=== PATIENT | female | born 1995 | race Caucasian/White ===

== ENCOUNTER 2016-09-29 03:06 | Observation (INO) | payer SELFPAY ==
[~2016-09-29] VITALS: Ht 149.9 cm; Wt 94.4 kg
--- NOTE | ~2016-09-29 | HP ---
PATIENT'S NAME: TATY BROCK [facility] AGE: 21 Y [address] ROOM: [id number] [place] [address] LOCATION: [facility] ADMIT DATE: 09/29/2016 History & Physical DISCHARGE DATE: FAMILY PHYSICIAN: PHYSICIAN, LEROY ATTENDING PHYSICIAN: CHERYL BUCHANAN DATE OF SERVICE: HISTORY OF PRESENT ILLNESS: The patient is a 21-year-old female, -1-1-1, at 28 weeks and 5 days, who presented to Labor and Delivery this morning with complaints of pelvic pressure and abdominal pain. Her has been complicated by history of late presentation to care at approximately 19 to 20 weeks and was diagnosed with dichorionic diamniotic twin while hospitalized. She also has a history of methamphetamine use and a history of a possible 28 week demise due to a fall and suspected abruption. The patient has been followed throughout this , since it has been documented by our office as well as [facility]. Also of significant note is that she had an ultrasound done on September [address] Skelton with [facility] that showed demise of twin A. At that time, the fetus was measuring approximately 22 weeks. This was twin A, which was a female. Twin B was viable and had normal growth at the 44th percentile. The patient was counseled that she was at increased risk for delivery and a PPROM due to her complications. When the patient arrived here, she was checked by nursing staff and was found to be internally approximately a cm dilated with multiparous cervix. She had noted irritability on the monitor and was just complaining of generalized abdominal pain. IV fluids were started. Labs were obtained. The patient improved rapidly after initiation of IV fluids. Due to concern for her risk of possible labor, she was ordered to receive Celestone, so she has received one dose of that thus far. Currently, she states that she is doing well. Denies any abdominal pain and denies any further pelvic pressure or vaginal bleeding. She has noted positive movements. PAST MEDICAL HISTORY: Significant for as stated above methamphetamine abuse. PAST SURGICAL HISTORY: Noncontributory. OBSTETRICAL HISTORY: As stated above. The patient has a history of a previous delivery in a previous demise at 28 weeks due to her reported fall. She has also been anemic during this and has been taking iron supplementation. Her labs are not currently in front of me for review. PATIENT'S NAME: TATY BROCK [facility] AGE: 21 Y [address] ROOM: [address] [address] LOCATION: [facility] ADMIT DATE: 09/29/2016 History & Physical DISCHARGE DATE: FAMILY PHYSICIAN: PHYSICIAN, NO ATTENDING PHYSICIAN: CHERYL BUCHANAN ALLERGIES: SHE DOES NOT HAVE ANY KNOWN ALLERGIES TO MEDICATIONS. MEDICATIONS: She is taking a vitamin and ferrous sulfate. REVIEW OF SYSTEMS: Negative except as noted above. SOCIAL HISTORY: The patient denies any tobacco, alcohol, or drug use at this time. She is accompanied by her significant other. PHYSICAL EXAMINATION: VITAL SIGNS: Reviewed and are stable. heart tones have a baseline of 135 with moderate variability, positive accels, occasional variable D cell with spontaneous resolution and toco shows some mild irritability. GENERAL: She is awake, alert, and oriented, does not appear to be any acute distress. HEART: Regular rate and rhythm. LUNGS: Clear to auscultation bilaterally. ABDOMEN: Gravid. EXTREMITIES: Show no cyanosis or edema. NEUROLOGIC: On cervical exam, anesthesia is probably fingertip thick and high. LABORATORY DATA: Bedside ultrasound was performed for presentation only as she had had a recent growth scan and appears the Twin A on her left, still is in cephalic presentation with twin B in transverse lie with head in the patient's left upper quadrant. ASSESSMENT AND PLAN: This is a 21-year-old female at 28 weeks and 5 days with a dichorionic diamniotic twin with demise of twin A and complaints of pelvic pressure and abdominal pain. 1. Intrauterine . status of twin B remains reassuring with normal heart tones. 2. . Concern for labor. Discussed with the patient and her significant other that I do recommend that she receive Celestone today and another repeat dose tomorrow just as she is a high-risk patient and with her concerning symptoms in previous poor care. She was in agreement with this plan. She is allowed to have a general diet and tend to have external monitoring every 12 hours. She was instructed to notify the nurses, should she start having feelings of contractions, decreased PATIENT'S NAME: TATY BROCK [facility] AGE: 21 Y [address] ROOM: [address] [address] LOCATION: [facility] ADMIT DATE: 09/29/2016 History & Physical DISCHARGE DATE: FAMILY PHYSICIAN: PHYSICIAN, NO ATTENDING PHYSICIAN: CHERYL BUCHANAN movement, or any other concerns that she could be placed back on the monitor. She was agreeable to this plan. MD VEE TURK/aris /[id number] D: [id number] T: [id number] HISTORY & PHYSICAL
[2016-09-29 04:24] LABS: BASOPHIL % 0.3 %; EOSINOPHIL # 0.1 K/uL (0.0-0.5); EOSINOPHIL % 0.9 %; HEMATOCRIT 31.1 % (33.0-46.0); HEMOGLOBIN 10.4 g/dL (11.0-15.0); IMMATURE GRANULOCYTE # 0.1 K/uL (0.0-0.3); IMMATURE GRANULOCYTE % 0.6 %; LYMPHOCYTE # 2.4 K/uL (0.8-4.0); LYMPHOCYTE % 24.1 %; MCH 30.7 pg (27.0-34.0); MCHC 33.4 gm/dL (32.0-36.5); MCV 91.7 fl (83.0-98.0); MONOCYTE # 0.6 K/uL (0.0-1.0); MONOCYTE % 5.6 %; MPV 10.7 fl (9.4-12.4); NEUTROPHIL # (ANC) 6.8 K/uL (1.8-7.8); NEUTROPHIL % 68.5 %; NRBC % 0 /100WBC (0-0.00); PLATELET COUNT 306 K/uL (150-450); RBC 3.39 M/uL (3.50-5.00); RDW-CV 13.2 % (11.9-14.6)
[2016-09-29 04:41] LABS: ALBUMIN 2.5 gm/dL (3.5-5.0); ALK PHOS 115 IU/L (33-138); ALT 45 IU/L (12-78); ANION GAP 13.4 (10.0-19.0); AST 22 IU/L (10-40); BLOOD UREA NITROGEN 9 mg/dL (6-24); CALCIUM 8.7 mg/dL (8.5-10.5); CHLORIDE 106 mMol/L (96-110); CO2 24 mMol/L (22-32); CREATININE 0.6 mg/dL (0.5-1.1); ESTIMATED GFR (MDRD EQUATION) > 60; POTASSIUM 3.4 mMol/L (3.7-5.1); SODIUM 140 mMol/L (135-145); TOTAL PROTEIN 6.6 g/dL (6.0-8.4)
[2016-09-29 04:42] LABS: TOTAL BILIRUBIN 0.3 mg/dL (0.0-1.5)
[2016-09-29] MEDS ORDERED: PRENATAL 1+1)(P1 TAB PO (05:51)
[2016-09-29 07:30] LABS: BARBITURATE NEGATIVE (NEGATIVE); COCAINE NEGATIVE (NEGATIVE); OPIATES NEGATIVE (NEGATIVE)
[2016-09-29 07:39] LABS: AMPHETAMINE NEGATIVE (NEGATIVE)
--- NOTE | 2016-09-29 14:37 | NUR ---
Met with patient at bedside today. Introduced myself and explained my role with the CM department. Patient is to [place]. he has a job, but they do not have insurance through his work. Anna is in the process of applying for Medicaid, but [facility] has asked for supporting documents and she is in the process of getting those together. She states they are currently living at [facility]. She states they have enough money saved and are starting to look for their own place. They have a two year old also living with them as well as her husbands teenage son. She states she is connected with the [facility] and is working with [employer] on car seats at this time. She states she already has a bassinet for the baby. She denies having any unmet needs at this time. Will hopefully discharge over the weekend back to [place].
--- NOTE | 2016-09-29 18:00 | NUR ---
Last VS: T 98.1: P: R: BP: Pain ratin . Last pain med:None Medicated at: Effective: FHT: 135 Dilatation: Effacement %: Station: Significant Denies contraxs and/or abd. pain. Iv pump cleared.
== END 2016-09-30 09:55 | disposition disaster alternative care site (69) ==
LOC: GOBS 03:06
PROVIDERS: ADMIT Obstetrics & Gynecology
DX: O47.03 False labor before 37 completed weeks of gestation, third trimester (principal); O36.4XX1 Maternal care for intrauterine death, fetus 1; O30.043 Twin pregnancy, dichorionic/diamniotic, third trimester; O42.913 Preterm premature rupture of membranes, unspecified as to length of time between rupture and onset of labor, third trimester; Z3A.28 28 weeks gestation of pregnancy; Z79.899 Other long term (current) drug therapy
CPT/HCPCS: G0463; J0702; J7120

== ENCOUNTER 2016-10-21 03:11 | Inpatient (IN) | payer SELFPAY ==
[~2016-10-21] VITALS: Ht 149.9 cm; Wt 95.1 kg
--- NOTE | ~2016-10-21 | OR ---
PATIENT'S NAME: TATY BROCK [facility] AGE: 21 Y [address] ROOM: [place] [address] LOCATION: [facility] ADMIT DATE: 10/21/2016 OR/Procedure Report DISCHARGE DATE: FAMILY PHYSICIAN: PHYSICIAN, NO ATTENDING PHYSICIAN: Cortez Fair SURGEON: Alex Ryan MD PILING SETTER: None. DATE OF PROCEDURE: 10/21/2016 PREOPERATIVE DIAGNOSES: 1. Intrauterine at 31 weeks 6 days with dichorionic diamniotic twins. 2. Active labor. 3. demise of twin A, diagnosed on September 22, 2016. 4. Intrapartum hemorrhage. 5. Cord prolapse of twin B. POSTOPERATIVE DIAGNOSES: 1. Intrauterine at 31 weeks 6 days with dichorionic diamniotic twins. 2. Active labor. 3. demise of twin A, diagnosed on September 22, 2016. 4. Intrapartum hemorrhage. 5. Cord prolapse of twin B. PROCEDURES PERFORMED: 1. Spontaneous vaginal delivery of twin A. 2. Primary low transverse section. ANESTHESIA: Epidural. FINDINGS: Viable male infant with scores of 7 and 9 and weight of 3 pounds 11 ounces. Normal uterus. Normal fallopian tubes and ovaries bilaterally with right paratubal cyst measuring 1.5 cm. Arterial cord pH of twin B of 7.05 with a base deficit of 9. ESTIMATED BLOOD LOSS: Prior to surgery, 500 mL. Surgical estimated blood loss was 800 mL. COMPLICATIONS: None. INDICATIONS: The patient is a 21-year-old G4, P1-0-0-2-1, with dichorionic diamniotic twin at 31 weeks 6 days, who presented to Labor and Delivery with complaints of contractions. She was found to be catrachito every 2 minutes and was dilated to 5 cm. She progressed to 6 cm. She did PATIENT'S NAME: TATY BROCK [facility] AGE: 21 Y [address] ROOM: [place] [address] LOCATION: [facility] ADMIT DATE: 10/21/2016 OR/Procedure Report DISCHARGE DATE: FAMILY PHYSICIAN: PHYSICIAN, NO ATTENDING PHYSICIAN: Cortez Fair receive magnesium. The patient had already received Celestone on September 29 and for labor at that time. The patient also had a known demise of twin A that was diagnosed on September 22, 2016. Upon arrival to Labor and Delivery, the patient had an ultrasound done by Dr. Fair that showed the presentation to be cephalic-cephalic. The patient desired vaginal delivery. She had artificial rupture of membranes of twin A. twin A delivered spontaneously in the bed at 6:22 a.m. The cord was clamped and cut. After delivery of twin A, the patient was noted to have vaginal bleeding about 250 mL. heart tones for twin B were reassuring, 140s. Positive accelerations, no decelerations, and moderate variability. She was found to still be catrachito every 2 minutes. The patient continued to have vaginal bleeding and had an additional 250 mL out. At that time, it was decided to place an FSE on twin B. Ultrasound was again performed, and twin B was noted to be in the cephalic presentation. An FSE was attempted to be placed, a large gush of fluid was noted, and the cord was palpated. At that time, a code red section was called. heart tones were externally audible in the 140s. This artificial rupture of membranes was performed at 6:38 a.m. DESCRIPTION OF PROCEDURE: The patient was taken to the OR where she was placed on the OR bed. A Garza catheter had already been placed. An epidural was already in place. She was draped with a sterile drape. Betadine was splashed on the patient's abdomen. A time-out was not performed due to the emergent nature of the situation. A scalpel was used to make an incision and was carried down to the underlying fascia. The fascia was incised and extended with blunt traction. The peritoneum was identified and entered bluntly. This was extended bluntly. The bladder blade was placed for visualization. A scalpel was then used to make a transverse incision in the lower uterine segment. This was extended in a cephalad caudal direction. The head was then grasped and brought through the incision, followed by the remainder of the fetus. Cord was clamped and cut, and the infant was handed to the awaiting vehicle maintenance technician and delivery team. Time of delivery was 6:51 a.m. The placenta was then expressed intact. Cord B was doubly clamped with cord clamps. Cord A had already been clamped with one cord clamp, and that was noted to be extracted as well. Arterial cord pH was obtained from cord B. The uterus was then exteriorized. It was cleared of remaining clots and debris. It was then closed in a running locked fashion using 0 chromic suture. Hemostasis did require 2 [id number] sutures of 0 Vicryl in the midline as well as cautery. The uterus was replaced into the abdominal cavity. Hemostasis was then again noted. The rectus muscles and fascia were inspected and noted to be hemostatic. The fascia was then closed in a running fashion using 0 Vicryl suture. The subcutaneous tissue was then irrigated. Any bleeding areas were cauterized. It was then closed in a running fashion using 2-0 Vicryl. The skin was then closed in a subcuticular fashion using 4- 0 Monocryl. At this time, an x-ray of the pelvis and abdomen was performed, and no retained sponges or instruments were noted. Please note that in one of PATIENT'S NAME: TATY BROCK [facility] AGE: 21 Y [address] ROOM: [place] [address] LOCATION: [facility] ADMIT DATE: 10/21/2016 OR/Procedure Report DISCHARGE DATE: FAMILY PHYSICIAN: PHYSICIAN, NO ATTENDING PHYSICIAN: Cortez Fair the pictures, the patient did place her hand under the drape and on her hip, and you can see her hand with a ring, but a repeat imaging was performed after her hand was removed, and there was nothing noted to be in the abdomen or pelvis. A Prevena was placed over the incision. The patient did receive gentamicin after the skin incision, but prior to the end of the case. Instrument, sponge, and needle count was not done due to the emergency of the case, and as stated before, x-ray was performed, and no retained sponges, instruments, or needles were noted in the abdomen. DISPOSITION: Mother stable. Baby to NICU. MD SANDRA CHADWICK/aris /[id number] d: 10/21/16 1225 t: 10/23/16 0847, OPERATIVE SUMMARY
--- NOTE | ~2016-10-21 | DS ---
PATIENT'S NAME: TATY BROCK [facility] AGE: 21 Y [address] ROOM: [place] [address] LOCATION: [facility] ADMIT DATE: 10/21/2016 Discharge Summary DISCHARGE DATE: 10/23/2016 FAMILY PHYSICIAN: PHYSICIAN, NO ATTENDING PHYSICIAN: Alex Ryan REASON FOR ADMISSION: labor. DISCHARGE DIAGNOSES: 1. delivery. 2. 31-week dichorionic diamniotic twin intrauterine . 3. demise of twin A four weeks prior. 4. Antepartum hemorrhage. 5. Cord prolapse of twin B. PROCEDURES DURING ADMISSION: 1. Spontaneous vaginal delivery of twin A. 2. Primary low transverse section for twin B. HOSPITAL COURSE: The patient is a 21-year-old female with intrauterine at 31 weeks 6 days is showed up to Labor and Delivery in active labor. She had known intrauterine demise of twin A, diagnosed a month prior. The patient was 6 cm dilated. She had artificial rupture of membranes. She had spontaneously delivered twin A in the bed. She was noted to have about 500 mL of blood loss over the next 20 minutes. She had artificial rupture of membranes of twin B, who was known to be in cephalic presentation. A cord prolapse occurred at that time. Emergent section was recommended. She underwent an emergent primary low transverse section without complication and Proventil was placed postoperatively. Her postoperative course was uncomplicated. Her Garza catheter was removed. On postoperative day #1, she is able to void spontaneously. She is ambulating, urinating, tolerating p.o., and desired to be discharged home on postoperative day #3. DISCHARGE MEDICATIONS: Please refer to med reconciliation. DISCHARGE INSTRUCTIONS: The patient is instructed no lifting greater than 15 pounds for four to six weeks and nothing in vagina for 6 [address] while on narcotics. She was instructed to call if pain not controlled with pain medication, bleeding more than a pad an hour, if any area for incision rather looked infected. FOLLOWUP: The patient will follow up with Dr. Ryan in two and four weeks. PATIENT'S NAME: TATY BROCK [facility] AGE: 21 Y [address] ROOM: [place] [address] LOCATION: [facility] ADMIT DATE: 10/21/2016 Discharge Summary DISCHARGE DATE: 10/23/2016 FAMILY PHYSICIAN: LEROY LLOYD ATTENDING PHYSICIAN: Alex Ryan MD SANDRA CHADWICK/aris /[id number] d: 10/29/162022 t: 11/15/16 0923, DISCHARGE SUMMARY
[~2016-10-21 03:11] MED LIST: PRENATAL 1+1)(P1 TAB PO
[2016-10-21 04:19] LABS: BASOPHIL % 0.3 %; EOSINOPHIL # 0.1 K/uL (0.0-0.5); EOSINOPHIL % 0.5 %; HEMATOCRIT 32.3 % (33.0-46.0); HEMOGLOBIN 10.7 g/dL (11.0-15.0); IMMATURE GRANULOCYTE % 0.3 %; LYMPHOCYTE # 3.4 K/uL (0.8-4.0); LYMPHOCYTE % 35.1 %; MCH 29.8 pg (27.0-34.0); MCHC 33.1 gm/dL (32.0-36.5); MONOCYTE # 0.6 K/uL (0.0-1.0); MONOCYTE % 6.5 %; MPV 10.5 fl (9.4-12.4); NEUTROPHIL # (ANC) 5.6 K/uL (1.8-7.8); NEUTROPHIL % 57.3 %; NRBC % 0 /100WBC (0-0.00); PLATELET COUNT 273 K/uL (150-450); RBC 3.59 M/uL (3.50-5.00); RDW-CV 13.4 % (11.9-14.6); WBC 9.8 K/uL (4.0-11.0)
[2016-10-21 07:07] LABS: PCO2 88 mmHg (35-45); PO2 16 mmHg (80-90)
[2016-10-21 07:08] LABS: BICARBONATE 24.3 mmol/L (18.0-23.0)
--- NOTE | 2016-10-21 18:00 | NUR ---
10/21/2016 1800 Iv Mag. remains on 2 grams/hr. U/O wnl-2000+. Bilateral patellar reflexes 2+. Resps 14-18. Iv pump cleared. Next pen G @ 1900. Needs Celestone @ 1100 tomorrow am. Vss,afebrile.
--- NOTE | 2016-10-21 18:58 | NUR ---
Last VS: T:97.9 P:81 R: 18 BP: 88/52 Pain ratin-8 Last pain med: Percocet Medicated at: 1653 Effective: Partial relief R Lung sounds: , L Lung sounds: Fundus:, , Lochia: SMALL Breasts: BREASTPUMP @ BS Nipples: Incision: , Incision appearance: Incision closure: WOUND VAC Bowel sounds: Passing flatus: N Voiding well: N Significant event: *.UP TO NICU X2 TO SEE BABY KELLIE CASAREZ. BACK TO ROOM PER W/C AT 1900....
--- NOTE | 2016-10-22 04:20 | NUR ---
VSS, fundus firm, lochia small, emptying bladder without difficulty. pumped last night for the first time. percocet last at 0515, wound vac intact and looks good. patient doing well, does get sad at times over lost infant. baby in morgue and they have the baby brought up at times.
[2016-10-22 04:46] LABS: BASOPHIL % 0.3 %; EOSINOPHIL # 0.1 K/uL (0.0-0.5); EOSINOPHIL % 0.9 %; HEMATOCRIT 25.9 % (33.0-46.0); HEMOGLOBIN 8.3 g/dL (11.0-15.0); IMMATURE GRANULOCYTE % 0.3 %; LYMPHOCYTE # 1.7 K/uL (0.8-4.0); LYMPHOCYTE % 18.3 %; MCH 30.6 pg (27.0-34.0); MONOCYTE # 0.6 K/uL (0.0-1.0); MONOCYTE % 6.6 %; MPV 10.8 fl (9.4-12.4); NEUTROPHIL # (ANC) 6.7 K/uL (1.8-7.8); NEUTROPHIL % 73.6 %; NRBC % 0 /100WBC (0-0.00); RBC 2.71 M/uL (3.50-5.00); RDW-CV 13.8 % (11.9-14.6); WBC 9.1 K/uL (4.0-11.0)
[2016-10-22 04:50] LABS: MCV 95.6 fl (83.0-98.0); PLATELET COUNT 203 K/uL (150-450)
--- NOTE | 2016-10-22 17:12 | NUR ---
Last VS: T:97.8 P:97 R: 14 BP: 120/52 Pain ratin. Last pain med: Percocet @ 1431,Motrin @ 1244 Medicated at: Effective: Partial relief R Lung sounds:cl , L Lung sounds:cl Fundus:ff,even Lochia:small Breasts: soft Nipples: not assessed Incision: , Incision appearance:Has wound vac. Incision closure: Bowel sounds:Hypoactive Passing flatus: No Voiding well: yes Significant event: .Needs Lovenox @ 2100. Has pumped once during this shift. Has not selected [facility] for Twin demise. Has signed for autopsy. in lab. Lab knows about autopsy. certificate done. Iv d/c'ed this am. Hgb 8.3 this am.VSS.
--- NOTE | 2016-10-23 05:18 | NUR ---
VSS. FUNDUS FIRM MIDLINE EVEN WITH UMBOLICUS. SCANT FLOW. WOUND VAC TO INCISION. PUMPED 1 TIME DURING SHIFT, ENCOURAGED TO PUMP SEVERAL TIMES. PERCOCET LAST AT 0305, MOTRIN LAST AT 2014. AMBULATED TO NICU ONE TIME IN SHIFT.
--- NOTE | 2016-10-23 09:50 | NUR ---
Spoke to Adela with [employer] since it appeared patient was working on Medicaid her last stay. Adela will follow up with her. 1230 Introduced self/role to patient. Her and her recently moved out of [facility] to a [employer] where are renting both sides. Her works at [employer] and his boss owns the [employer]. !8 year old step son and a 2 year old child also in the home. Patients states she is coping okay with the loss of one of the twins - Renata Holguin Lui in the NICU. Went over post- depression and gave her a hand out. Talked about Medicaid. She stated she turned in what they requested but has not heard back. Gave her Adela's card. Gave her a list of all the resources in town. They have no carseat yet but have time to get one. Working with [employer] and next appointment is October 30. She plans to breast feed. Will probably travel between home and here once dismissed. [facility] however would probably not be approved since they live in [place] so would be out of pocket. Plans to doctor for baby at [facility], may switch to Family Practice at some point since 2 year old goes there. She had no concerns or needs at this time. CM will continue to follow on NICU.
--- NOTE | 2016-10-23 17:03 | NUR ---
Significant Event: Follow up: VSS, linens clean, shower set up, ambulated to nicu x 1, pumping x2, last got 25 mls. Debbi from in to visit. Care management here to visit. Lovenox @ 2100. Medicated with percocet & motrin @ 0737, percocet 2) @ 1254. Woundvac int & working. Prolly home tomorrow. Has worksheet for memory certicate @ bedside.
--- NOTE | 2016-10-24 04:33 | NUR ---
Last VS: T:98.5 P:85 R: 16 BP: 118/68 Pain ratin Last pain med: PERCOCET/MOTRIN Medicated at: 1583/3619 Effective: YES R Lung sounds: CLEAR L Lung sounds: CLEAR Fundus: FIRM,MIDLINE ,AT UMBILICUS Lochia: SM, RUBRA Breasts: SOFT Nipples: INTACT Incision: , Incision appearance: Incision closure: WOUND VAC IN PLACE Bowel sounds: Passing flatus: Y Voiding well: Y Significant event: PT SLEPT MOST OF THE NIGHT. PUMPED TWICE. VISITED NICU X 1. PLANS FOR DISMISSAL TODAY.
[2016-10-24] MEDS ORDERED: MOTRIN800 MG PO (10:22)
[2016-10-24] MEDS ORDERED: LANSINOH7 GM TOP (10:22)
[2016-10-24] MEDS ORDERED: PERCOCET 5-3251 EACH PO (10:23)
--- NOTE | 2016-10-24 17:45 | NUR ---
Met with Danna at bedside today. She states that she and her have moved to a [facility] and they have both the upstairs and lower level units. She is working with Adela Mojica on Medicaid and received a financial assistance application. She received all other information from [employer] yesterday. I provided her with a [employer] Voucher today. She denies any other needs at this time. She will discharge to home today and I will continue to follow while baby is in the NICU.
== END 2016-10-24 17:30 | disposition disaster alternative care site (69) | DRG 765 ==
LOC: GOBS 03:11
PROVIDERS: Obstetrics & Gynecology; ADMIT Obstetrics & Gynecology
PROC: 10E0XZZ Delivery of Products of Conception, External Approach (ICD-10-PCS; principal; 2016-10-21)
PROC: 10D00Z1 Extraction of Products of Conception, Low, Open Approach (ICD-10-PCS; principal; 2016-10-21)
PROC: 10907ZC Drainage of Amniotic Fluid, Therapeutic from Products of Conception, Via Natural or Artificial Opening (ICD-10-PCS; principal; 2016-10-21)
DX: O60.14X1 Preterm labor third trimester with preterm delivery third trimester, fetus 1 (principal); O36.4XX1 Maternal care for intrauterine death, fetus 1; O30.043 Twin pregnancy, dichorionic/diamniotic, third trimester; Z37.3 Twins, one liveborn and one stillborn; O67.8 Other intrapartum hemorrhage; O60.14X2 Preterm labor third trimester with preterm delivery third trimester, fetus 2; O69.0XX2 Labor and delivery complicated by prolapse of cord, fetus 2; Z3A.31 31 weeks gestation of pregnancy
CPT/HCPCS: J0690; J1580; J1650; J1885; J2590; J3010; J3475; J7060; J7120

== ENCOUNTER 2016-11-07 16:03 | Inpatient (IN) | payer SELFPAY ==
[~2016-11-07] VITALS: Ht 149.9 cm; Wt 86.7 kg
--- NOTE | ~2016-11-07 | ER ---
[facility] 21 Y [address] ROOM: [place] [address] [place] [facility] [place] DATE: 11/07/2016 ER/Outpatient Report DISCHARGE DATE: FAMILY PHYSICIAN: LEROY LLOYD ATTENDING PHYSICIAN: RENÉ STALLWORTH Time of Arrival: 1603. Time Seen: 1608. IDENTIFICATION: 21-year-old female. CHIEF COMPLAINT: Chest pain and shortness of breath. HISTORY OF PRESENT ILLNESS: The patient is a 21-year-old female, three weeks , who developed chest pain and shortness of breath this morning, but 20 minutes prior to arrival, chest pain, increasing shortness of breath, dizzy, hot and cold flashes. She saw Dr. Ryan this morning for wound dehiscence and has a section wound that is packed. She has been feeling hot and cold, but no documented fever and no redness from the wound. PAST MEDICAL HISTORY: ALLERGIES: PENICILLIN CAUSES ANAPHYLAXIS. CURRENT MEDICATIONS: 1. Percocet. 2. Hydrocodone. 3. vitamins. MEDICAL PROBLEMS: Denies. PRIOR SURGERIES: section three weeks ago. Premature was delivered at 36 weeks. He is still in the NICU. She is a G5, P2, spontaneous AB3, living children 2 female. SOCIAL HISTORY: The patient is , lives here in [place], has two children. The new baby a 3-week-old is still in the NICU. She is . Tobacco use, denies. Alcohol use, denies. Drug use, denies. [facility]GE: 21 Y [address] ROOM: [place] [address] [place] [facility] [place] DATE: 11/07/2016 ER/Outpatient Report DISCHARGE DATE: FAMILY PHYSICIAN: , LEROY ATTENDING PHYSICIAN: RENÉ STALLWORTH REVIEW OF SYSTEMS: All systems reviewed and negative other than what is noted in the HPI although after we got done with labs and evaluating her, she did say she was having some epigastric pain during her , which they told her was heartburn. FAMILY HISTORY: No pertinent family history. PHYSICAL EXAMINATION: VITAL SIGNS: Weight 87.6 kg, blood pressure 129/67, respirations 22, pulse 40, temp 98.6, and saturations 97%. GENERAL: A 21-year-old, very ill- appearing, pale female, tachypneic, and in obvious distress with pain and shortness of breath. HEENT: Head: Normocephalic. Eyes: Pupils equal and reactive to light and accommodation. Extraocular movements intact. No scleral icterus. Nose: Mucosa pink, no lesions or drainage. Mouth: No lesions. Pharynx benign. NECK: Supple. No lymphadenopathy. No nuchal rigidity. LUNGS: Clear to auscultation. Diminished breath sounds due to poor inspiratory effort. HEART: Sinus bradycardia. No murmur, rub, or gallop. ABDOMEN: The patient is tender in the right upper quadrant with positive Kenyon sign. EXTREMITIES: Right lower extremity greater than left lower extremity. She has had some calf pain and tenderness in that right leg. It is tender to examination. Good distal pulses. NEUROLOGIC: The patient is alert and oriented x4. Cranial nerves 2 through 12 grossly intact. Motor strength 5/5 throughout. Sensation is intact to light touch. EMERGENCY DEPARTMENT COURSE: An IV was initiated. Labs and x-ray were emergently ordered with the differential diagnosis to include pulmonary embolus at this time. Risk factors include postop, post , and right lower extremity pain and swelling. EKG shows normal sinus rhythm at 61 beats per minute. No acute ST elevation or depression. No prior EKG available for comparison. She was taken for CT scan. Prior to her labs returning, CT scan shows hepatomegaly, no evidence of pulmonary embolus per Dr. Cheng, radiologist. D-dimer then did return elevated at 5.42. Venous Doppler of her right lower extremity negative for DVT. LABORATORY DATA: Catheter UA; 0-2 white cells, otherwise negative. Hemoglobin 8.7, which is up from 8.2 , hematocrit 27.5, platelets 640, white count 11.0 with a normal differential. INR 0.97. Sodium 145, potassium 3.2, chloride 108, CO2 of 27, BUN 8, creatinine 0.6, blood sugar 99. AST 283, ALT 259, GFR greater PATIENT'S NAME: TATY BROCK [facility] AGE: 21 Y [address] ROOM: [address] [place], [place] [address] [place]: [facility] [place] DATE: 11/07/2016 ER/Outpatient Report DISCHARGE DATE: FAMILY PHYSICIAN: PHYSICIAN, NO ATTENDING PHYSICIAN: RENÉ STALLWORTH D than 60. Total bilirubin 0.4. Magnesium, CPK, CK-MB, troponin-I all normal. ProBNP elevated at 330, amylase 20, lipase 162. Right upper quadrant ultrasound does reveal gallstones and a dilated common bile duct at 1 cm. IMPRESSION AND PLAN: 1. Cholelithiasis and right upper quadrant pain with elevated liver enzymes and mildly dilated common bile duct. Plan for admission per Dr. Stallworth with Dr. Nash consulting and Dr. Tejeda consulting. Dr. Ryan was also advised of her hospitalization. 2. Shortness of breath and bradycardia. No evidence of pulmonary embolism on CT scan. No evidence of pneumonia. Telemetry admission per Dr. Stallworth. 3. Postop section with wound dehiscence, Dr. Ryan to follow. The wound is currently packed at this time. 4. Thrombocytosis. 5. Anemia. 6. Hypokalemia. MD DEJAH HOGUE/aris /[id number] d: 11/07/16 2329 t: 11/08/16 1029, OUTPATIENT REPORT
--- NOTE | ~2016-11-07 | DS ---
PATIENT'S NAME: TATY BROCK [facility] AGE: 21 Y [address] ROOM: [address] [place] [address] LOCATION: [facility] ADMIT DATE: 11/07/2016 Discharge Summary DISCHARGE DATE: 11/10/2016 FAMILY PHYSICIAN: PHYSICIAN, NO ATTENDING PHYSICIAN: Zabrina Sheth CONSULTING PHYSICIANS: Dr. Nash, Isela Portillo, and Dr. Ryan. DISCHARGE DIAGNOSES: 1. Acute cholecystitis, choledocholithiasis. 2. Postop wound dehiscence. 3. Anemia secondary to recent delivery. 4. Transaminitis. PROCEDURES PERFORMED: Lap jayden with IOC by Dr. Cuco Nash on 11/07/2016. HOSPITAL COURSE: Please refer to admitting history and physical as dictated by Dr. Sheth. Briefly, the patient was admitted to [facility] with right abdominal pain with common bile duct dilation. General Surgery as well as GI were consulted. She underwent MRCP. Wound Care was consulted for her postop wound dehiscence that was followed by Wound. MRCP was performed, which did show cholelithiasis with gallbladder wall edema as well as mild bile duct dilation and mild pancreatitis. She was taken for lap jayden with IOC on 11/08/2016. She tolerated the procedure well. She was up and ambulatory postoperatively. On the first postop day, her liver enzymes were noted to be AST 201, ALT 279. She did continue to have some abdominal pain; therefore, she was kept one further night. Liver enzymes were repeated. AST was down to 219, ALT slightly up to 407. Her wound dehiscence was packed with dry gauze and covered with an ABD. It was recommended that is be changed 1 to 2 times per day and p.r.n. if saturation. She should follow up with outpatient wound care on 11/15/2016, at 10:[address] Ryan had prescribed Bactrim; however, the patient had not either picked that prescription up or was not at her pharmacy; therefore, it was recommended that she continue Bactrim DS one tablet p.o. twice a day for 14 days. On the day of discharge, she was tolerating a regular diet. She was up and ambulatory in the hallway. Her pain was controlled. She was passing flatus. Vital signs were stable. It was recommended that she could be discharged to home. Follow up with Dr. Ryan as scheduled. Follow up with Dr. Nash next Sunday with a [facility] prior to clinic. Follow up with outpatient wound care as noted above. LABORATORY DATA: Sodium remained within normal limits; potassium 3.2 to 3.8, this was replaced with p.o. as well as IV replacement; calcium 8.1; BUN 8; creatinine 0.6. Total bilirubin upon admit 0.3, it did trend up as high as 0.6, prior to discharge 0.4; alkaline phosphatase on admit 379, it did trend PATIENT'S NAME: TATY BROCK [facility] AGE: 21 Y [address] ROOM: [place] [address] LOCATION: [facility] ADMIT DATE: 11/07/2016 Discharge Summary DISCHARGE DATE: 11/10/2016 FAMILY PHYSICIAN: PHYSICIAN, NO ATTENDING PHYSICIAN: Zabrina Sheth upward to 495 on the day of discharge; AST 283 upon admit, it trended as high as 372, and 219 prior to discharge; AST 259 on admit, 407 prior to discharge. GFR remained greater than 60. Mag 2.4. Cardiac enzymes were negative. Hemoglobin 7.8 to 8.7, hematocrit 25.3 to 27.5, WBCs within normal limits, platelets 520. D-dimer 5.42. UA; leukocytes 25, nitrites negative, wbc 0 to 2, bacteria negative. RADIOLOGY REPORTS: CT scan with PE protocol shows no PE, no acute cardiopulmonary abnormalities, hepatomegaly suspected. MRCP, please refer to hospital course. DISCHARGE INSTRUCTIONS: The patient will be discharged to home. Diet as tolerated. Activity as tolerated. Change wound with dry gauze and cover with abdominal dressing 1 to 2 times per day and p.r.n. saturation. Remove lap jayden dressing in 2 to 3 days. Follow up with Dr. Nash next Sunday with [facility] prior to clinic. Follow up with Wound Care on 11/15/2016 at 10:30 a.m. Follow up with Dr. Ryan as scheduled. See postop lap jayden instruction sheet for further instructions. DISCHARGE MEDICATIONS: 1. Colace 100 mg p.o. twice daily, hold if loose stools. 2. vitamin 1 tablet p.o. daily. 3. Bactrim DS one tablet p.o. b.i.d., stop after 11/22/2016 p.m. dose. 4. Percocet 5/325 one or two tablets p.o. every 6 hours as needed for moderate pain. Do not take at the same time as Fisk. 5. Fisk 5/325 one or two tablets p.o. every 4 hours as needed for pain. Do not take at the same time as Percocet. 6. Milk of magnesia 30 mL p.o. as needed for constipation. 7. Motrin 800 mg p.o. every 8 hours as needed for mild pain. 8. MiraLAX 17 g p.o. daily p.r.n. constipation, over the counter. 9. Diphenhydramine 50 mg p.o. every 12 hours as needed for allergies. 10. Probiotic of choice over the counter, as per box instructions, take while on antibiotics. Thank you for allowing us to participate in the care of this patient as she has been hospitalized at [facility]. TOSIN TONY APRN FOR MD JOSHUA MENDEZ/aris /[id number] PATIENT'S NAME: TATY BROCK [facility] AGE: 21 Y [address] ROOM: [place] [address] LOCATION: [facility] ADMIT DATE: 11/07/2016 Discharge Summary DISCHARGE DATE: 11/10/2016 FAMILY PHYSICIAN: PHYSICIAN, NO ATTENDING PHYSICIAN: Zabrina Sheth CC: MD Isela Hall APRN Jesse Loeffler, MD d: 11/11/16 0551 t: 11/19/16 1507, DISCHARGE SUMMARY
--- NOTE | ~2016-11-07 | CON ---
PATIENT'S NAME: TATY BROCK [facility] AGE: 21 Y [address] ROOM: [place] [address] LOCATION: [facility] [place] ADMIT DATE: 11/07/2016 Consultation DISCHARGE DATE: FAMILY PHYSICIAN: PHYSICIAN, LEROY ATTENDING PHYSICIAN: RENÉ STALLWORTH REFERRING PHYSICIAN: Cuco Nash MD CHIEF COMPLAINT: Epigastric pain. HISTORY OF PRESENT ILLNESS: The patient is a 21-year-old female who said at 9 o'clock today she began having pain, she describes this as in her lower chest, thought maybe she was just hungry, she ate something, she said this made the pain worse. It got progressively worse throughout the day with pain in her lower chest and epigastrium, she said it hurt into her back. She did not have nausea or vomiting with this, but with this severe pain ultimately ended up in the emergency room. The reason she really presented to the emergency room was because she said it was difficult for her to get a breath, she felt short of breath. She was seen in the emergency room. There was concern for a PE, as she had elevated D-dimer. Had a PE protocol, a CT of her chest, which was normal. The patient is less than 3 weeks, status post section as well. After being in the emergency room, her shortness of breath decreased. She continued to have pain, again more in the epigastrium. She then had an ultrasound of her gallbladder which revealed cholelithiasis. She says she is feeling better now, mild abdominal discomfort. Her ultrasound also revealed a common bile duct of 1.2 mm. She had normal bilirubin. She did have elevation of her transaminases and alkaline phosphatase. CURRENT MEDICATIONS: None. ALLERGIES: PENICILLIN. SOCIAL HISTORY: She is a nonsmoker, nondrinker. She has 2 children. FAMILY HISTORY: She had a grandmother with breast cancer, mother with ovarian cancer. PREVIOUS SURGERY: section. REVIEW OF SYSTEMS: She denies headache or vision changes. She did have the chest pain today as PATIENT'S NAME: TATY BROCK [facility] AGE: 21 Y [address] ROOM: [place] [address] LOCATION: [facility] [place] ADMIT DATE: 11/07/2016 Consultation DISCHARGE DATE: FAMILY PHYSICIAN: PHYSICIAN, NO ATTENDING PHYSICIAN: RENÉ STALLWORTH well as shortness of breath. She had no melena, no hematochezia, no hematuria or dysuria. Full 10-point review of systems is negative. PHYSICAL EXAMINATION: HEENT: Head is normocephalic, atraumatic. Eyes are anicteric. NECK: Without lymphadenopathy. HEART: Regular rate and rhythm. No murmurs audible. LUNGS: Clear to auscultation bilaterally. ABDOMEN: Soft. She does have tenderness to palpation in the epigastrium and right upper quadrant. No rebound or guarding. No other palpable masses are present. Her section incision is mostly healed, however, there is an open area on the lateral aspect. EXTREMITIES: Warm. No edema. ASSESSMENT: Symptomatic cholelithiasis. PLAN: Discussed the findings with Taty. We discussed surgical intervention with the severe pain she had. She really would like to get this performed sooner rather than later. Gastroenterology has been consulted due to her bile duct, although I feel this is likely secondary to her recent . We discussed increased risks of surgery with her recent operation as well as her . Risks of surgery include bleeding, infection, bile leak, bile duct injury, injury to other viscera. We discussed waiting and performing this at a later date. We will re-evaluate her tomorrow, repeat her LFTs, and try to make surgical decisions at that point. MD FABRIZIO CHAN/aris /[id number] d: 11/08/16 0019 t: 11/08/16 1658, CONSULTATION REPORT
--- NOTE | ~2016-11-07 | ENPV ---
Vascular Lower Extremities DVT Study Procedure Demographics Patient Name TATY BROCK Date of Study 11/07/2016 Patient Number [id number] Gender Female Date of 1995 Age 21 Visit Number [id number] Height Accession Number [id number] Weight Room Number G3210 BSA BMI Referring Interpreting Jose M Tejada MD Physician Physician Physician Ordering Physician Danielle Landa MD Telegraphic Typewriter Installer Sagger Maker Lee Ann Brasher T, [facility] Conclusions Summary TECHNIQUE: The veins of the lower extremity on the right were evaluated from the groin to the ankle using moyer scale, compression, and augmentation. Venous hemodynamics were evaluated with color flow and spectral Doppler. FINDINGS: The deep and superficial veins of the right leg show normal color flow and compressibility without thrombosis. Comparison left CFV and GSV were imaged and are negative. IMPRESSION: 1. NEGATIVE RIGHT LOWER EXTREMITY VENOUS DOPPLER. Procedure Type of Study: Veins:Lower Extremities DVT Study, Lower Extremity Right. Indications for Study:Swelling of Limb. Appropriate Use Criteria:6 Patient Status:STAT. Study Location:ER. Technical Quality:Good visualization. - Preliminary reported to:Dr. Santos at [id number]. Velocities are measured in cm/s ; Diameters are measured in cm Right Lower Extremities DVT Study Measurements Right 2D and Doppler Measurements + + + + +------+------+ + !Location !Visualized!Compressibility!Thrombosis!Signal!Reflux!Reflux ! ! ! ! ! ! ! !(sec) ! + + + + +------+------+ + !GSV Thigh !Yes !Yes !None !Phasic! ! ! + + + + +------+------+ + !Common !Yes !Yes !None !Phasic! ! ! !Femoral ! ! ! ! ! ! ! + + + + +------+------+ + !Prox !Yes !Yes !None !Phasic! ! ! !Femoral ! ! ! ! ! ! ! + + + + +------+------+ + !Mid Femoral!Yes !Yes !None !Phasic! ! ! + + + + +------+------+ + !Dist !Yes !Yes !None !Phasic! ! ! !Femoral ! ! ! ! ! ! ! + + + + +------+------+ + !Popliteal !Yes !Yes !None !Phasic! ! ! + + + + +------+------+ + !PTV !Yes !Yes !None !Phasic! ! ! + + + + +------+------+ + !Peroneal !Yes !Yes !None !Phasic! ! ! + + + + +------+------+ + Left Lower Extremities DVT Study Measurements Left 2D and Doppler Measurements + + + + +------+------+ + !Location !Visualized!Compressibility!Thrombosis!Signal!Reflux!Reflux ! ! ! ! ! ! ! !(sec) ! + + + + +------+------+ + !GSV Thigh !Yes !Yes !None !Phasic! ! ! + + + + +------+------+ + !Common !Yes !Yes !None !Phasic! ! ! !Femoral ! ! ! ! ! ! ! + + + + +------+------+ + Signature dtt: Mitchell Salguero dtd: 11/07/16 1735 Physician Self Edit
--- NOTE | ~2016-11-07 | HP ---
PATIENT'S NAME: TATY BROCK [facility] AGE: 21 Y [address] ROOM: [address] [place] [address] [place] [facility] [place]: 11/07/2016 History & Physical DISCHARGE DATE: FAMILY PHYSICIAN: PHYSICIAN, NO ATTENDING PHYSICIAN: RENÉ STALLWORTH DATE OF SERVICE: CHIEF COMPLAINT: Mid sternal chest pain. HISTORY OF PRESENT ILLNESS: This is a 21-year-old female who is status post delivery of a live baby via C- section on October [address] Ryan, who comes into the ER this afternoon because of complaint of midsternal chest pain which started around 9:00 a.m. while at rest, which radiated to her back and also her upper and also the epigastric region. She reported the pain was described as sharp and started initially as a heartburn. She says she took Tums, but did not help. Severity was between 1 and 2 out of 10. As the day progressed, the severity of the pain increased such that at around 3 or 3:30, severity was 9/10. The pain was constant and she reported that at this point in time she developed some shortness of breath and because of this, she decided to come into the ER. When she arrived in the ER, the patient complained of subjective shortness of breath, however, saturation on room air was 97%. She did also complain of continuous chest pain. She got bilateral lower extremity duplex scan done, which was negative for DVT and also had a CTA of the chest done for PE, which was negative. She reported that while she was at home she did not have any relieving factor, cannot remember what aggravated the pain. Denies history of fever. She reported that this symptom started slowly during her . She denies abdominal pain. Denies diarrhea. She denies diaphoresis. Denies any tingling in her arms during the episode of the symptoms. In the ER, she had an abdominal ultrasound done which shows gallstones as well as CBD dilatation of at least 1 mm, and Dr. Santos, the ED physician, consulted GI as well as General surgery. She denies headache. Denies cough. Please also note, the patient visited with her OB doctor yesterday and she has currently a pack in the right side of her surgical wound, which is slowly breaking down. REVIEW OF SYSTEMS: The 13 elements of review of systems were asked and as documented in the HPI. The others are negative. PAST MEDICAL HISTORY: None. SOCIAL HISTORY: PATIENT'S NAME: TATY BROCK [facility] AGE: 21 Y [address] ROOM: [place] [address] [place] [facility] [place]: 11/07/2016 History & Physical DISCHARGE DATE: FAMILY PHYSICIAN: PHYSICIAN, NO ATTENDING PHYSICIAN: RENÉ STALLWORTH Denies history of smoking. Denies use of alcohol. Remote history of methamphetamine abuse. FAMILY HISTORY: Both parents are alive; mother is 43, has irritable bowel syndrome; father is alive, 42, has no medical problem. PAST SURGICAL HISTORY: Includes . PHYSICAL EXAMINATION: VITAL SIGNS: In the ER, saturation 97% on room air, temperature 98.6, pulse 40, respiratory rate 22. GENERAL: A young female who is alert, awake, oriented x3, not in any form of respiratory distress or painful distress. NEUROLOGIC: Cranial nerves 2 through 12 are intact bilaterally. Sensory is intact bilaterally. Power is 5/5 in all the extremities. HEENT: Normocephalic, atraumatic. Pupils equal and reactive to light bilaterally. Pharynx is normal. Mucosa is moist. Ears: No obvious ear discharge or drainage. NECK: Supple. No area of tenderness. No lymphadenopathy. CARDIOVASCULAR SYSTEM: Normal S1, S2. Regular rate and rhythm. CHEST: Clear to auscultation bilaterally. ABDOMEN: Soft, nondistended. No area of tenderness. No palpable organomegaly. Dressing to the lower abdominal quadrants. EXTREMITIES: There is no joint swelling or erythema or tenderness. SKIN: No rash or skin breakdown. LABORATORY DATA: On admission, WBC 11, H and H 8.7/27.5, platelets 640. Sodium 145, potassium 3.2, CO2 27, calcium 8.4, BUN 8, and creatinine 0.6. Liver function tests: AST 238, ALT 259, alkaline phosphatase 379, total bilirubin 0.4, and albumin 2.8. D-dimer 5.42. Microbiology, none was indicated. RADIOLOGY: Ultrasound of the abdomen: Reported as cholelithiasis, no ultrasound findings of acute cholecystitis, dilatation of the common bile duct with a diameter of about 12 mm, choledocholithiasis is a differential consideration. Correlation with ERCP may be helpful. CTA per PE protocol: No PE, no acute cardiopulmonary abnormalities, hepatomegaly suspected. ASSESSMENT AND PLAN: This is a 21-year-old female who comes in with chest pain. 1. Atypical chest pain, present on admission, probably from reflux esophagitis, has resolved. We will start the patient on some Protonix. PATIENT'S NAME: TATY BROCK [facility] AGE: 21 Y [address] ROOM: [place] [address] [place] [facility] [place]: 11/07/2016 History & Physical DISCHARGE DATE: FAMILY PHYSICIAN: PHYSICIAN, NO ATTENDING PHYSICIAN: RENÉ STALLWORTH 2. Probable choledocholithiasis, present on admission. The patient is going to get an MRCP done in the morning and further management is going to be per preparation department supervisor. 3. Cholelithiasis. Following Gastrointestinal evaluation. Probably, the patient is going to get a laparoscopic cholecystectomy during this admission. 4. Elevated transaminases, present on admission, probably secondary to choledocholithiasis. We will continue to monitor. 5. Hypokalemia, present on admission. We will replete with some more potassium. 6. Anemia, probably anemia secondary to vaginal bleeding from child delivery. We will continue the patient on iron supplements. The line of management was explained to the patient who did not have any questions at this time. MD MARIA C RENTERIA/aris /[id number] D: T: 647 HISTORY & PHYSICAL
--- NOTE | ~2016-11-07 | CON ---
PATIENT'S NAME: TATY BROCK [facility] AGE: 21 Y [address] ROOM: [place] [address] LOCATION: [facility] ADMIT DATE: 11/07/2016 Consultation DISCHARGE DATE: FAMILY PHYSICIAN: PHYSICIAN, NO ATTENDING PHYSICIAN: RENÉ STALLWORTH DATE OF CONSULTATION: 11/08/2016 REFERRING PHYSICIAN: Alex Ryan MD. REASON FOR CONSULT: dehiscence. HISTORY OF PRESENT ILLNESS: This is a pleasant 21-year-old female patient who was admitted to [facility] with cholelithiasis. She has a history of seizures and syncope. Otherwise is healthy. She delivered a baby boy by on October 21. A wound VAC was applied to the site x6 days and then she noted wound dehiscence. She saw Dr. Ryan yesterday and the wound was packed with iodoform Nu Gauze. The patient denies fevers, chills, or sweats. She reports a good oral intake. She denies chest pain or shortness of breath. No history of diabetes. PAST MEDICAL HISTORY: Seizures and syncope. PAST SURGICAL HISTORY: . FAMILY HISTORY: None listed. SOCIAL HISTORY: The patient lives in [place]. She denies tobacco use. ALLERGIES: PENICILLIN. CURRENT MEDICATIONS: Please refer to the medication administration record. REVIEW OF SYSTEMS: All are negative except as mentioned above in the HPI. PATIENT'S NAME: TATY BROCK [facility] AGE: 21 Y [address] ROOM: [place] [address] LOCATION: [facility] ADMIT DATE: 11/07/2016 Consultation DISCHARGE DATE: FAMILY PHYSICIAN: PHYSICIAN, LEROY ATTENDING PHYSICIAN: RENÉ STALLWORTH PHYSICAL EXAMINATION: VITAL SIGNS: Temperature 98.2, pulse 51, respirations 18, blood pressure 119/58, and pulse oximetry 94%. Height 4 feet 11 inches and weight 86.7 kg. GENERAL: The patient is alert and oriented x3. In no acute distress. Pleasant with cares. HEENT: Head: Normocephalic, atraumatic. NEUROLOGICAL: Grossly nonfocal. MUSCULOSKELETAL: Able to plantar and dorsiflex against resistance. EXTREMITIES: Deferred. SKIN: Right lower quadrant wound measures 2.0 cm width x 1.0 cm length x 3.5 cm depth. From what I can tell, wound bed is pink. Suture noted. Periwound intact. Moderate amount of serosanguineous exudate noted. Proximal aspect is slightly indurated. No purulent exudate or odor. LABORATORY DATA: White blood cell count 8.9, hemoglobin 7.8, hematocrit 25.1, and platelets 485. Sodium 143, potassium 3.3, chloride 111, bicarb 25, BUN 7, creatinine 0.6, glucose 92, and albumin 2.4. ASSESSMENT AND PLAN: Again, this is a 21-year-old female patient who was admitted to [facility] cholelithiasis. Wound Care consulted to evaluate and treat a section dehiscence. 1. section wound dehiscence. Wound is down to subcutaneous tissue. No need for wound VAC at this time unless stalled progress is noted. No signs of infection. We will discontinue iodoform Nu Gauze as the area is large enough to pack with Aquacel rope. I instructed nursing to loosely pack daily, cover with gauze and then an ABD. Can change p.r.n. saturation as well. When the patient is able to eat again, I instructed her on the importance of protein intake. Currently, she is n.p.o. as she is awaiting further GI studies. When she can eat, she was instructed to pick protein-rich foods. I instructed her on proper body mechanics. I gave her my card, and I would be happy to see her in [facility] if needed. Otherwise, I put dressing supplies in her room and I will continue to follow during her hospital stay. 2. Cholelithiasis. GI on board. I would like to thank Dr. Ryan for this consultation. GIANCARLO RAMOS APRN FOR MD GALA LOCKHART/aris PATIENT'S NAME: TATY BROCK [facility] AGE: 21 Y [address] ROOM: [place] [address] LOCATION: [facility] ADMIT DATE: 11/07/2016 Consultation DISCHARGE DATE: FAMILY PHYSICIAN: LEROY LLOYD ATTENDING PHYSICIAN: RENÉ STALLWORTH /[id number] d: 11/08/16 2249 t: 11/14/16 1352, CONSULTATION REPORT
--- NOTE | ~2016-11-07 | OR ---
PATIENT'S NAME: TATY BROCK [facility] AGE: 21 Y [address] ROOM: [address] [address] LOCATION: [facility] ADMIT DATE: 11/07/2016 OR/Procedure Report DISCHARGE DATE: FAMILY PHYSICIAN: PHYSICIAN, NO ATTENDING PHYSICIAN: RENÉ STALLWORTH SURGEON: Cuco Nash MD NET C DEVELOPER: DATE OF PROCEDURE: 11/07/2016 Added assist per physician 11/10/16 AO PREOPERATIVE DIAGNOSIS: Symptomatic cholelithiasis. POSTOPERATIVE DIAGNOSIS: Symptomatic cholelithiasis. PROCEDURE: Laparoscopic cholecystectomy. ASSISTING SURGEON: Bernadette Jensen PA-C FINDINGS: The gallbladder was edematous. Cholangiogram: Initially, contrast was not able to be seen flowing into the duodenum. With aggressive flushing, small sludge-like material and stones were retrieved through the cystic duct. Once this was completed, contrast was able to be seen flowing into the duodenum. ESTIMATED BLOOD LOSS: Less than 20 mL. COMPLICATIONS: None. INDICATIONS: The patient is a 21-year-old female, who presented with abdominal pain, mainly in the right upper quadrant. She had ultrasound revealing stones. Bile duct was dilated. She did have an MRCP. There was an area of artifact versus stone. Ultimately with her bilirubin being normal and her feeling better, we elected to proceed with cholecystectomy with cholangiogram. Risks, benefits, and alternatives were discussed with the patient. DESCRIPTION OF PROCEDURE: The patient was taken to the operating room. She was supine, given IV sedation, subsequently intubated. Her abdomen was prepped with ChloraPrep and sterilely draped. Local anesthetic was infiltrated superior to the umbilicus. A transverse incision was created. The abdomen was elevated. Veress needle was inserted. Pneumoperitoneum was induced. Following this, a 5 mm trocar was inserted followed by insertion of the camera. There was no injury from initial trocar placement. Three more trocars were then positioned, an 11 mm epigastric and two 5 mm right subcostal ports. Skin overlying the peritoneum was first anesthetized prior to making these incisions. All 3 of these trocars were inserted under direct visualization. PATIENT'S NAME: TATY BROCK [facility] AGE: 21 Y [address] ROOM: [address] [address] LOCATION: [facility] ADMIT DATE: 11/07/2016 OR/Procedure Report DISCHARGE DATE: FAMILY PHYSICIAN: PHYSICIAN, LEROY ATTENDING PHYSICIAN: RENÉ STALLWORTH The gallbladder was grasped and was elevated over the dome of the liver. The infundibulum was grasped and retracted inferiorly and laterally to expose the Calot of triangle. There were adhesions on the gallbladder that had to be taken down prior to doing this. The gallbladder was noted to be edematous. The cystic duct and artery were dissected around circumferentially. The cystic duct was clipped near the gallbladder, it was partially transected. Cholangiogram catheter was then inserted. On transecting the cystic duct, there was a significant amount of bile that spilled through the cystic duct concerning for common bile duct stones. Cholangiogram was obtained. This revealed no evidence of contrast extending into the duodenum; however, with a very large duct, it was difficult to fill this. We advanced the balloon and aggressively flushed the duct, withdrew the balloon and injected contrast again. It appeared as though we had flow of bile into the duodenum. On our aggressive flushing with the balloon down, we were able to obtain small stones and sludge-like material. No large filling defects were seen. With no filling defects and flow into the duodenum, ultimately we elected to do no further exploration, although knowing that we could have flushed from the distal duct more proximally with the small stones and may not be able to see these by fluoroscopy. The cystic duct was then doubly clipped and divided. Cystic artery was doubly clipped and divided. The gallbladder was removed from the liver bed using electrocautery. This was placed in EndoCatch bag and brought out through the epigastric port site. The liver bed was then inspected and appeared hemostatic. The clips appeared to be in good position on both the cystic duct and artery. The area was irrigated. The fluid was removed. The pneumoperitoneum was released. The trocars were removed. The trocar sites appeared hemostatic. The fascia of the epigastric port site was approximated with 0 Vicryl suture followed by skin closure of all 4 port sites with 4-0 Monocryl suture. Steri-Strips and sterile dressings were placed. The patient was extubated and sent to recovery in good condition. CUCO MD FABRIZIO SILVA/aris /[id number] Added assist per physician 11/10/16 AO d: 11/09/16 0048 t: 11/28/16 1810, OPERATIVE SUMMARY
--- NOTE | ~2016-11-07 | CON ---
PATIENT'S NAME: TATY BROCK [facility] AGE: 21 Y [address] [place] [facility] [place] [address] LOCATION: [facility] [place] ADMIT DATE: 11/07/2016 Consultation DISCHARGE DATE: FAMILY PHYSICIAN: PHYSICIAN, NO ATTENDING PHYSICIAN: RENÉ STALLWORTH DATE OF CONSULTATION: 11/08/2016 REFERRING PHYSICIAN: Cuco Nash MD REASON FOR CONSULTATION: Abnormal LFTs and mid-epigastric discomfort. HISTORY OF PRESENT ILLNESS: This is a very pleasant 21-year-old female, who recently underwent a C- section. The patient states while , she developed right upper quadrant pain though denied increased intensity. The patient stated that yesterday morning around 9 o'clock in the morning, she began having mid epigastric pain. At that time, She did eat something as the pain increased significantly throughout the day, the pain significantly worsened with lower chest and mid epigastric pain as well as with radiation to the back. She does state she had some slight nausea and no vomiting. She also states that she experienced chills at home though was afebrile. The patient presented to the emergency room with statement of difficulty with breathing as she felt short of breath. On evaluation at the emergency room, CT was completed of her chest for concern of PE. She did have elevated D-dimer though CT was negative. The patient has less than 3 weeks post section with a small wound at the edge of the . After being in the emergency room, she did undergo an ultrasound showing cholelithiasis as well as a dilated common bile duct at 1.2 mm. Her liver enzymes were slightly elevated with an AST of 283, ALT of 259, alkaline phosphatase of 379; however, total bilirubin was within normal limits at 0.4. The patient currently denies any chest pain and chest pressure. She does state that the mid-epigastric discomfort has relieved slightly with the assistance of pain medication. She has been afebrile. She denies any chills, nausea, or vomiting at this time. PAST MEDICAL HISTORY: None. PAST SURGICAL HISTORY: Recent approximately 3 weeks ago. SOCIAL HISTORY: The patient is nonsmoker and nondrinker. She has 2 children. FAMILY HISTORY: PATIENT'S NAME: TATY BROCK [facility] AGE: 21 Y [address] ROOM: [id number] [place], [place] [address] LOCATION: [facility] [place] ADMIT DATE: 11/07/2016 Consultation DISCHARGE DATE: FAMILY PHYSICIAN: PHYSICIAN, NO ATTENDING PHYSICIAN: RENÉ STALLWORTH The patient's grandmother had breast cancer and the patient's mother had ovarian cancer. ALLERGIES: PENICILLIN. CURRENT MEDICATIONS: Please refer to the medication administration record. REVIEW OF SYSTEMS: A 10-point review of systems was completed. All were negative except for those identified in the history of present illness. PHYSICAL EXAMINATION: GENERAL: A very pleasant 21-year-old female, lying in bed, who appears to be in no acute distress. VITAL SIGNS: Temperature 98.2, pulse of 51, respirations of 18, blood pressure 119/58. Oxygen saturations 94% on room air. SKIN: [place], warm, dry. No jaundice. HEENT: Head is normocephalic and atraumatic. Pupils are equal, round, and reactive to light. Sclerae are clear. Nonicteric. Oral mucosa is pink and moist. No thyromegaly. NECK: Soft and supple. CARDIOVASCULAR: Regular normal S1 and S2. RESPIRATORY: Respirations are even and unlabored. LUNGS: Clear to auscultation. ABDOMEN: Soft. Tender throughout. More specific in the midepigastric area. Bowel sounds positive x4 quadrants MUSCULOSKELETAL: No muscle weakness or atrophy. EXTREMITIES: No clubbing, cyanosis, or edema. NEUROLOGIC: Grossly nonfocal. LABS AND DIAGNOSTICS: White blood cell count 8.9, hemoglobin of 7.8, hematocrit of 25.1, MCV of 91.9, platelet of 485. Chemistry panel includes a glucose of 92, BUN of 7, creatinine 0.6 sodium 143, potassium of 3.3, chloride 111, CO2 of 25, albumin of 2.4. AST of 201 down from 283, ALT of 279 up from 259, alkaline phosphatase of 348 down from 379, total bilirubin 0.2. Magnesium of 2.4. Amylase and lipase on admission were amylase of 20, lipase of 162. D-dimer was elevated at 5.42. CT scan of the chest for PE protocol shows no PE. Hepatomegaly was suspected. No acute cardiopulmonary abnormalities. Abdominal ultrasound completed showed findings of acute cholecystitis. Dilation of the common bile duct to a diameter of 12 mm. ASSESSMENT AND PLAN: PATIENT'S NAME: TATY BROCK [facility] AGE: 21 Y [address] ROOM: [address] [address] LOCATION: [facility] [place] ADMIT DATE: 11/07/2016 Consultation DISCHARGE DATE: FAMILY PHYSICIAN: PHYSICIAN, NO ATTENDING PHYSICIAN: RENÉ STALLWORTH Again this is a very pleasant 21-year-old female, status post approximately 3 weeks ago. The patient developed severe mid-epigastric discomfort with radiation to the back as well as accompanied chills and mild nausea at home. She presented to the emergency room where she was noted to have an elevated AST and ALT as well as an alkaline phosphatase. Her total bilirubin has remained within normal limits. Abdominal ultrasound did show cholelithiasis as well as dilation of the common bile duct of 12 mm with some mild intrahepatic biliary dilation. At this time, current MRCP is pending. We will await for these results. If positive, the patient may need to go undergo an ERCP for ductal clearance, if negative possible lap choly per surgery with possible intraoperative cholangiogram to be performed. This was discussed in depth with the patient. She verbalizes understanding. The patient will be kept n.p.o. until further recommendations. Thank you for this consult and allowing us to participate in the care of this patient. We will continue to monitor, evaluate, and treat as appropriate. MADIE CHÁVEZ APRN FOR MD EDGARDO MCLAUGHLIN/modl /[id number] d: 11/08/16 1023 t: 11/13/16 1525, CONSULTATION REPORT
[~2016-11-07 16:03] MED LIST changes: +LANSINOH7 GM TOP; +MOTRIN800 MG PO; +PERCOCET 5-3251 EACH PO
[2016-11-07 16:29] LABS: BASOPHIL # 0.1 K/uL (0.0-0.2); BASOPHIL % 0.5 %; EOSINOPHIL # 0.1 K/uL (0.0-0.5); EOSINOPHIL % 0.5 %; HEMATOCRIT 27.5 % (33.0-46.0); HEMOGLOBIN 8.7 g/dL (11.0-15.0); IMMATURE GRANULOCYTE # 0.3 K/uL (0.0-0.3); IMMATURE GRANULOCYTE % 2.4 %; LYMPHOCYTE # 2.2 K/uL (0.8-4.0); LYMPHOCYTE % 19.8 %; MCH 28.5 pg (27.0-34.0); MCHC 31.6 gm/dL (32.0-36.5); MONOCYTE # 0.7 K/uL (0.0-1.0); MONOCYTE % 6.1 %; MPV 10.1 fl (9.4-12.4); NEUTROPHIL # (ANC) 7.8 K/uL (1.8-7.8); NEUTROPHIL % 70.7 %; NRBC % 0.2 /100WBC (0-0.00); RBC 3.05 M/uL (3.50-5.00); RDW-CV 14.4 % (11.9-14.6)
[2016-11-07 16:32] LABS: MCV 90.2 fl (83.0-98.0); PLATELET COUNT 640 K/uL (150-450)
[2016-11-07 16:44] LABS: INR - (THERAPEUTIC) 0.97 (0.92-1.07); PROTIME 10.2 SECONDS (9.8-11.4); PTT 24 SECONDS (25-32)
[2016-11-07 16:49] LABS: ALBUMIN 2.8 gm/dL (3.5-5.0); ALK PHOS 379 IU/L (33-138); ALT 259 IU/L (12-78); ANION GAP 13.2 (10.0-19.0); AST 283 IU/L (10-40); BLOOD UREA NITROGEN 8 mg/dL (6-24); CALCIUM 8.4 mg/dL (8.5-10.5); CHLORIDE 108 mMol/L (96-110); CO2 27 mMol/L (22-32); CPK 24 IU/L (21-215); CREATININE 0.6 mg/dL (0.5-1.1); ESTIMATED GFR (MDRD EQUATION) > 60; MAGNESIUM 2.2 mg/dL (1.8-2.6); POTASSIUM 3.2 mMol/L (3.7-5.1); SODIUM 145 mMol/L (135-145); TOTAL BILIRUBIN 0.4 mg/dL (0.0-1.5); TOTAL PROTEIN 7.3 g/dL (6.0-8.4)
[2016-11-07 17:24] LABS: BILIRUBIN URINE NEGATIVE (NEGATIVE); BLOOD URINE NEGATIVE /UL (NEGATIVE); GLUCOSE URINE NEGATIVE (NEGATIVE); KETONE URINE NEGATIVE (NEGATIVE); LEUKOCYTES URINE 25 /UL (NEGATIVE); NITRITE URINE NEGATIVE (NEGATIVE); PH URINE 6.5 (4.0-8.0); PROTEIN URINE 30 mg/dL (NEGATIVE); SPEC GRAVITY URINE 1.005 (1.003-1.035); UROBILINOGEN URINE 4 mg/dL (NORMAL)
[2016-11-07 17:47] LABS: COLOR URINE YELLOW (YELLOW); TURBIDITY URINE CLEAR (CLEAR)
[2016-11-07 17:49] LABS: BACTERIA URINE NEGATIVE (NEGATIVE); EPITHELIAL URINE NEGATIVE #/HPF (NEGATIVE); RBC URINE NEGATIVE #/HPF (NEGATIVE); WBC URINE 0-2 #/HPF (NEGATIVE)
[2016-11-07] MEDS ORDERED: ALLERGY25 M1 PO (20:52)
[2016-11-07] MEDS ORDERED: HYDROCODON-ACE1 EAC4 PO (20:52)
[2016-11-07] MEDS ORDERED: ADVIL200 MG PO (20:53)
[2016-11-08 06:03] LABS: HEMATOCRIT 25.1 % (33.0-46.0); MCV 91.9 fl (83.0-98.0); MPV 9.9 fl (9.4-12.4); RBC 2.73 M/uL (3.50-5.00); RDW-CV 14.7 % (11.9-14.6); WBC 8.9 K/uL (4.0-11.0)
[2016-11-08 06:04] LABS: HEMOGLOBIN 7.8 g/dL (11.0-15.0); MCH 28.6 pg (27.0-34.0); MCHC 31.1 gm/dL (32.0-36.5); PLATELET COUNT 485 K/uL (150-450)
[2016-11-08 06:23] LABS: ALBUMIN 2.4 gm/dL (3.5-5.0); ALK PHOS 348 IU/L (33-138); ALT 279 IU/L (12-78); ANION GAP 10.3 (10.0-19.0); AST 201 IU/L (10-40); BLOOD UREA NITROGEN 7 mg/dL (6-24); CALCIUM 8.2 mg/dL (8.5-10.5); CHLORIDE 111 mMol/L (96-110); CO2 25 mMol/L (22-32); CREATININE 0.6 mg/dL (0.5-1.1); ESTIMATED GFR (MDRD EQUATION) > 60; MAGNESIUM 2.4 mg/dL (1.8-2.6); POTASSIUM 3.3 mMol/L (3.7-5.1); SODIUM 143 mMol/L (135-145); TOTAL PROTEIN 6.5 g/dL (6.0-8.4)
[2016-11-08 06:24] LABS: TOTAL BILIRUBIN 0.2 mg/dL (0.0-1.5)
[2016-11-08 06:46] LABS: ABSOLUTE NEUTROPHIL CT (ANC) 5.4 K/uL (1.8-7.8); BANDED NEUTROPHIL # 0.2 K/uL (0.0-0.1); BANDED NEUTROPHILS % 2 %; LYMPHOCYTE # 2.8 K/uL (0.8-4.0); LYMPHOCYTE % 31 %; MONOCYTE # 0.7 K/uL (0.0-1.0); SEGMENTED NEUTROPHIL # 5.3 K/uL (1.8-7.8); SEGMENTED NEUTROPHIL % 59 %
[2016-11-09 05:32] LABS: BASOPHIL % 0.4 %; EOSINOPHIL # 0.1 K/uL (0.0-0.5); EOSINOPHIL % 0.6 %; HEMATOCRIT 25.3 % (33.0-46.0); IMMATURE GRANULOCYTE # 0.4 K/uL (0.0-0.3); LYMPHOCYTE # 2.9 K/uL (0.8-4.0); LYMPHOCYTE % 32.2 %; MCH 28.4 pg (27.0-34.0); MCHC 30.8 gm/dL (32.0-36.5); MONOCYTE # 0.6 K/uL (0.0-1.0); MONOCYTE % 6.5 %; NEUTROPHIL % 56.3 %; NRBC % 0 /100WBC (0-0.00); PLATELET COUNT 507 K/uL (150-450); RBC 2.75 M/uL (3.50-5.00); RDW-CV 15.2 % (11.9-14.6); WBC 8.9 K/uL (4.0-11.0)
[2016-11-09 05:35] LABS: HEMOGLOBIN 7.8 g/dL (11.0-15.0)
[2016-11-09 05:50] LABS: ALBUMIN 2.3 gm/dL (3.5-5.0); ANION GAP 10.8 (10.0-19.0); BLOOD UREA NITROGEN 7 mg/dL (6-24); CHLORIDE 111 mMol/L (96-110); CO2 25 mMol/L (22-32); CREATININE 0.5 mg/dL (0.5-1.1); ESTIMATED GFR (MDRD EQUATION) > 60; POTASSIUM 3.8 mMol/L (3.7-5.1); SODIUM 143 mMol/L (135-145); TOTAL PROTEIN 6.1 g/dL (6.0-8.4)
[2016-11-09 05:57] LABS: ALK PHOS 461 IU/L (33-138); ALT 381 IU/L (12-78); AST 372 IU/L (10-40); TOTAL BILIRUBIN 0.6 mg/dL (0.0-1.5)
[2016-11-10 05:10] LABS: BASOPHIL % 0.4 %; EOSINOPHIL # 0.1 K/uL (0.0-0.5); EOSINOPHIL % 1.5 %; HEMATOCRIT 26.7 % (33.0-46.0); HEMOGLOBIN 8.5 g/dL (11.0-15.0); IMMATURE GRANULOCYTE # 0.3 K/uL (0.0-0.3); LYMPHOCYTE # 2.3 K/uL (0.8-4.0); LYMPHOCYTE % 25.6 %; MCH 28.6 pg (27.0-34.0); MCHC 31.8 gm/dL (32.0-36.5); MCV 89.9 fl (83.0-98.0); MONOCYTE # 0.5 K/uL (0.0-1.0); MONOCYTE % 5.9 %; MPV 9.9 fl (9.4-12.4); NEUTROPHIL # (ANC) 5.7 K/uL (1.8-7.8); NEUTROPHIL % 63.6 %; NRBC % 0 /100WBC (0-0.00); PLATELET COUNT 520 K/uL (150-450); RBC 2.97 M/uL (3.50-5.00); RDW-CV 15.3 % (11.9-14.6); WBC 8.9 K/uL (4.0-11.0)
[2016-11-10 05:25] LABS: ANION GAP 12.5 (10.0-19.0); BLOOD UREA NITROGEN 8 mg/dL (6-24); CALCIUM 8.1 mg/dL (8.5-10.5); CHLORIDE 108 mMol/L (96-110); CO2 25 mMol/L (22-32); CREATININE 0.6 mg/dL (0.5-1.1); ESTIMATED GFR (MDRD EQUATION) > 60; POTASSIUM 3.5 mMol/L (3.7-5.1); SODIUM 142 mMol/L (135-145)
[2016-11-10 07:47] LABS: ALBUMIN 2.4 gm/dL (3.5-5.0); TOTAL BILIRUBIN 0.4 mg/dL (0.0-1.5); TOTAL PROTEIN 6.3 g/dL (6.0-8.4)
[2016-11-10] MEDS ORDERED: COLACE100 MG PO (13:32)
[2016-11-10] MEDS ORDERED: BACTRIM DS1 TAB PO (13:33)
[2016-11-10] MEDS ORDERED: MILK OF MA400 MG/5 M PO (13:34)
[2016-11-10] MEDS ORDERED: MIRALAX17 GM PO (13:36)
[2016-11-10] MEDS ORDERED: PROBIOTIC1 EAC1 PO (13:38)
== END 2016-11-10 15:25 | disposition disaster alternative care site (69) | DRG 769 ==
LOC: GMED 16:03 → GMSU 18:57
PROVIDERS: Family Medicine; Nurse Practitioner Family; Physician Assistant; ADMIT Hospitalist
PROC: BF131ZZ Fluoroscopy of Gallbladder and Bile Ducts using Low Osmolar Contrast (ICD-10-PCS; principal; 2016-11-08)
PROC: 0FT44ZZ Resection of Gallbladder, Percutaneous Endoscopic Approach (ICD-10-PCS; principal; 2016-11-08)
DX: O99.63 Diseases of the digestive system complicating the puerperium (principal); K80.42 Calculus of bile duct with acute cholecystitis without obstruction; E87.6 Hypokalemia; O90.0 Disruption of cesarean delivery wound; O90.81 Anemia of the puerperium; D64.9 Anemia, unspecified; R74.0 Nonspecific elevation of levels of transaminase and lactic acid dehydrogenase [LDH]
CPT/HCPCS: J0744; J2270; J2405; J3010; J3480; J7030; J7050